=== PATIENT | female | born 1985 | race Asian ===

== ENCOUNTER → 2024-01-18 15:21 | Day surgery (SDC) | payer BC, SELFPAY ==
[2024-01-18] VITALS (43 sets, daily range): BP systolic 76–111; BP diastolic 44–79
[2024-01-18 09:23] LABS: % Basophils 0.2 % (0-2); % Immature Granulocytes 1.2 % (0-0.5); % Lymphocytes 9.4 % (20.5-51.1); % Monocytes 3.2 % (1.7-9.3); Absolute Immature Granulocytes 0.2 10^3/uL (0-0.05); Absolute Lymphocytes 1.8 10^3/uL (1.2-3.4); Absolute Monocytes 0.6 10^3/uL (0.1-0.6); Absolute Neutrophils 16.3 10^3/uL (1.4-6.5); Hematocrit 24.1 % (37.0-47.0); Hemoglobin 8.1 g/dL (12.0-16.0); Mean Corp Hgb Conc. 33.6 g/dL (33.0-37.0); Mean Corpuscular Hgb 26.9 pg (27.0-31.0); Mean Corpuscular Volume 80.1 fL (81.0-99.0); Mean Platelet Volume 12.7 fL (7.4-10.4); Nucleated Red Blood Cells % 0 %; Platelet Count 233 10^3/uL (130-400); Red Blood Cell Count 3.01 10^6/uL (4.20-5.40); Red Cell Dist. Width 14.2 % (11.5-14.5)
[2024-01-18 09:30] LABS: INR 1.12; PT 14.5 Sec (11.4-14.6)
--- NOTE | 2024-01-18 09:31 | ED.GENMED ---
History of Present Illness
General
Chief Complaint: Vaginal Bleeding
Time Seen by Provider: 01/18/24 09:04
History of Present Illness
History of Present Illness:
28-year-old A1 presenting to the emergency department for vaginal bleeding. Patient reports for the past week she has been having light vaginal bleeding, which progressed last evening with lower abdominal pain. She believes she is about 78
weeks with last patient. At the end of November. She has not yet established care for this , recently moved to the area last year. Reports history of gestational diabetes with prior , also had 2 C-sections. Denies history
of anemia or transfusions. Per medics, patient hypotensive. Patient denies any additional acute medical history. She denies any recent fever, chest pain, difficulty breathing. Notes that she is passing a lot of blood clots. She has also been
having nausea and vomiting. She reports generalized fatigue, weakness, dizziness. Denies additional acute medical complaints
Phy Exam
Physical Exam
Physical Exam:
GENERAL: Alert , in no apparent distress, pale
EYE: pupils equal and reactive
NECK: Supple, no significant adenopathy.
ENT: o/p clr, dry mucous membranes
CARDIAC: Regular rate and rhythm .
LUNGS: Clear breath sounds bilaterally, no acute respiratory distress, no wheezes/rales/rhonchi
ABDOMEN: Soft, generalized tenderness to lower abdomen, no lateralizing tenderness
NEUROLOGICAL: Alert and oriented, no focal neuro deficits
SKIN: Warm and dry, skin intact.
MUSCULOSKELETAL: No edema, well perfused.
PSYCH: Normal and appropriate interaction.
: Extraction of multiple clots on pelvic examination. No further pooling of blood from cervical os
Course
Orders/Labs/Results
Orders:
Orders
01/18/24 09:08
Type+Screen Urgent
Beta HCG Quantitative Urgent
Comment: ADD
Complete Blood Count/With Diff Urgent
Comprehensive Metabolic Panel Urgent
Prothrombin Time Urgent
01/18/24 09:12
Add On- LAB Urgent
Tests Added?: beta quant, ABORH
01/18/24 09:28
0.9% Sodium Chloride 500 ml [Nss] 500 ml IV BOLUS
Ondansetron Injectable [Zofran] 4 mg IV NOW STA
01/18/24 09:29
Urinalysis Urgent
01/18/24 10:01
Ondansetron Injectable [Zofran] 4 mg IV NOW STA
01/18/24 10:15
Morphine Sulfate 4 mg IV NOW STA
01/18/24 10:39
CBC/No Diff [Complete Blood Count/No Diff] Urgent
01/18/24 10:47
0.9% Sodium Chloride 1000 ml [Nss] 1,000 ml IV BOLUS
01/18/24 10:58
* Blood Bank Products Urgent
Blood Bank Products: *Packed RBC Leuko(PRBC's)
Quantity: 2 U
Transfuse Today: Yes
Reason: Bleeding
01/18/24 11:16
US 1st Trimester Urgent
Comment:
Reason For Exam: vaginal bleeding
Abnormal Lab Results
01/18/24 01/18/24
09:08 10:39
WBC 19.0 H 10^3/uL 18.5 H 10^3/uL
(4.8-10.8) (4.8-10.8)
RBC 3.01 L 10^6/uL 2.49 L 10^6/uL
(4.20-5.40) (4.20-5.40)
Hgb 8.1 L g/dL 6.8 L* g/dL
(12.0-16.0) (12.0-16.0)
Hct 24.1 L % 19.6 L* %
(37.0-47.0) (37.0-47.0)
MCV 80.1 L fL 78.7 L fL
(81.0-99.0) (81.0-99.0)
MCH 26.9 L pg
(27.0-31.0)
MPV 12.7 H fL 13.0 H fL
(7.4-10.4) (7.4-10.4)
Abs Immat Gran (auto) 0.2 H 10^3/uL
(0-0.05)
Absolute Neuts (auto) 16.3 H 10^3/uL
(1.4-6.5)
Immature Gran % 1.2 H %
(0-0.5)
Neutrophils % 86.0 H %
(42.2-75.2)
Lymphocytes % 9.4 L %
(20.5-51.1)
Sodium 134 L mmol/L
(135-145)
Carbon Dioxide 19 L mmol/L
(22-30)
Creatinine 0.5 L mg/dL
(0.6-1.0)
Glucose 187 H mg/dl
(70-99)
Crossmatch IS Only See Detail
01/18/24 10:39
01/18/24 09:08
Vital Signs
Initial and Last Documented VS:
Initial Vital Signs
Temp Pulse Resp BP Pulse Ox
98.2 F 89 18 76/60 100
01/18/24 09:03 01/18/24 09:03 01/18/24 09:03 01/18/24 09:03 01/18/24 09:03
Last Documented Vital Signs
Temp Pulse Resp BP Pulse Ox
98.0 F 86 31 94/46 100
01/18/24 11:46 01/18/24 11:46 01/18/24 11:46 01/18/24 11:46 01/18/24 11:46
MDM/Problems Addressed
MDM/Problems Addressed:
28-year-old A1 presenting for vaginal bleeding in , approximately 7 to 8 weeks by LMP. Vital signs on arrival significant for hypotension.
On exam, patient is pale, dry mucous membranes, hypotensive. IV access immediately obtained with IV fluids started for hemodynamic instability. Concern for volume depletion from vaginal bleeding. Differential considerations include active
incomplete miscarriage versus . Pelvic exam performed, extraction of clots with no further pooling of blood. Send ultrasound also performed, no evidence of blood in the abdomen, at this time lower suspicion for ruptured ectopic. Will
plan for laboratory analysis and ultrasound imaging. Will continue IV fluids for resuscitation, Zofran for nausea. Will continue to closely monitor
11:00 -blood pressure initially improving, however again dropping after IV fluids. Rechecked hemoglobin which was initially 8.1, now 6.8. Will consent for blood. Will consult with gynecology for potential surgical need for D&E.
11:30 -gynecology at bedside, extracted additional clots. Blood is running. Ultrasound at bedside performing imaging
11:50 -discussion with gynecology, plan for admission, possible operative management.
*Critical Care Note
Total Time (30-74mins, 75-104mins- exclusive of procedures): 60
comment:
Critical care statement: A total of 35 minutes of critical care time was provided for this patient for hemodynamic instability. This additionally includes management of unstable vital signs, evaluation of the patient at bedside, reviewing the
patient's pertinent medical records, discussion with consultants, review of old EKGs and review of pertinent medical records. This time with separate from time utilized to perform the aforementioned documented procedures
ED Attending Note
-
Portions of this chart may have been created with voice recognition software.� Occasional wrong word or��sound alike� substitutions may have occurred due to the inherent limitations of voice recognition software.
Discharge Plan
Departure
Referrals:
UNKNOWN - PT DOES,NOT KNOW [Family Provider] -
Interventions
Interventions:
*Risk Screen - Suicide Last Done: 01/18/24 09:06
*General Assessment Last Done: 01/18/24 09:05
*Neglect/Abuse Screening Last Done: 01/18/24 09:06
*ED COVID-19 Vaccine History Last Done: 01/18/24 09:10
ED-Female Genitourinary Assessment Last Done: 01/18/24 10:26
Discharge Date and Time
Print Language: ARABIC
[2024-01-18 09:37] LABS: ALT (SGPT) 22 U/L (0-35); AST (SGOT) 27 U/L (14-36); Albumin 3.8 g/dl (3.5-5.0); Alkaline Phosphatase 54 U/L (38-126); Blood Urea Nitrogen 14 mg/dl (7-17); Calcium 8.7 mg/dl (8.4-10.2); Carbon Dioxide 19 mmol/L (22-30); Chloride 104 mmol/L (98-107); Glucose 187 mg/dl (70-99); Potassium 4.6 mmol/L (3.5-5.1); Sodium 134 mmol/L (135-145); Total Bilirubin 0.3 mg/dl (0.2-1.3); Total Protein 6.5 g/dl (6.3-8.2); eGFR > 60.00
[2024-01-18] MEDS: ZOFRAN 4 MG IV ×2 (09:42→10:09)
[2024-01-18] MEDS: NSS 500 IV (09:45)
[2024-01-18] MEDS: MORPHINE SULFATE 4 MG IV (10:19)
[2024-01-18] MEDS: NSS 1000 IV (10:40)
[2024-01-18 10:49] LABS: Mean Corp Hgb Conc. 34.7 g/dL (33.0-37.0); Mean Corpuscular Hgb 27.3 pg (27.0-31.0); Mean Corpuscular Volume 78.7 fL (81.0-99.0); Platelet Count 205 10^3/uL (130-400); Red Blood Cell Count 2.49 10^6/uL (4.20-5.40); White Blood Cell Count 18.5 10^3/uL (4.8-10.8)
[2024-01-18 10:54] LABS: Hematocrit 19.6 % (37.0-47.0); Hemoglobin 6.8 g/dL (12.0-16.0)
--- NOTE | 2024-01-18 12:12 | HP.FOC2 ---
Focused History & Physical
Chief Complaint
HPI:
Chief Complaint: Heavy Vaginal Bleeding, early
HPI / Indication for Planned Procedure:
38yo with LMP 11/22/23 presents with her via EMS due to heavy vaginal bleeding that started around 2AM with intense cramping/ Patient should be 8 weeks by LMP, recently moved to the area and does not have an established physician.
States she had bleeding like a period last week, last 1 day, then resumed overnight. While in the E.R. she had hypotensive episode and a drop in her H/H was noted, thus she was ordered for 2U PRBCs and OB was consulted. At bedside an US was
performed that on my read shows no free fluid in the pelvis, no obvious adnexal masses, and thickened EMS, though no obvious G.S./IUP noted. final radiology read is pending when I saw patient
Relevant Past Medical History: Negative
Relevant Social History: Negative
Relevant Family History: Negative
Relevant Past Surgical History: Positive for (C/S x2, D&E x1)
Review of Systems
Review of Pertinent Systems: All Systems Negative Except for the Following Positives
Medication
See Medication form for detailed medications: Yes
Medication List (including Herbals & OTC):
No Meds [No Current Medications] 01/18/24
Medications Reviewed: Yes
Allergies and Reactions
Patient has Allergies: No
Noted Allergies and Reactions:
Allergy/AdvReac Type Severity Reaction Status Date / Time
No Known Allergies Allergy Verified 01/18/24 09:05
Pertinent Physical Exam
All Other Systems: Negative
Abdomen: Normal and Other (SSE: blood/clots and what appears to be placental tissue evacuated from a dilated cervix)
Diagnosis / Assessment
38yo With suspected incomplete AB, c/b hemorrhage
Plan / Procedure
1. Anemia related to acute blood loss- started blood transfusion as ordered by ER physician. 2UPRBCs ordered
2. Reviewed procedure of a D&E to evacuate any retained POC to help slow her bleeding. risks of bleeding, infection, injury to surrounding structures, need for additional unplanned procedures discussed and consent signed
3. doxycycline to be given pre-op
4. Discussed that I will likely keep her overnight in the hospital for monitoring given her significant blood loss.
Anesthesia/Sedation to be done by Anesthesia Provider: Yes
Vital Signs and Labs
-
Vital Signs and Labs:
Vital Signs
Temp Pulse Resp BP Pulse Ox
98.0 F 73 21 91/54 100
01/18/24 12:05 01/18/24 12:15 01/18/24 12:15 01/18/24 12:15 01/18/24 12:15
Lab Results
01/18/24 10:39
01/18/24 09:08
PT 14.5 Sec (11.4-14.6) 01/18/24 09:08
INR 1.12 01/18/24 09:08
Sodium 134 mmol/L (135-145) L 01/18/24 09:08
Potassium 4.6 mmol/L (3.5-5.1) 01/18/24 09:08
BUN 14 mg/dl (7-17) 01/18/24 09:08
Glucose 187 mg/dl (70-99) H 01/18/24 09:08
Calcium 8.7 mg/dl (8.4-10.2) 01/18/24 09:08
H/H: 8.1/24.1 on initial presentation
HC,375
Imaging Data
-
Pelvic US : UTERUS: The uterus is anteverted and measures 11.0 x 4.7 x 5.6 cm. An intrauterine gestational sac is not identified. The endometrium is thickened and heterogeneous measuring 2.1 cm in thickness.
RIGHT OVARY: The right ovary measures 2.5 x 2.1 x 2.2 cm. A thick-walled cystic structure in the right ovary measures 2.2 x 1.6 x 1.6 cm.
LEFT OVARY: The left ovary measures 2.2 x 1.8 x 2.0 cm.
There is no free fluid in the pelvis.
--- NOTE | 2024-01-18 13:29 | W.PN.UPDATE ---
Update Note
Progress Note Update
Reevaluated patient. She is resting comfortably. Denies nausea or pain at the moment. Has received 1U PRBCs, Pad has a small amount of blood on it, speculum exam not repeated.
Vitals: 89/55 P80 SpO2 100% R18
Nursing supervisor corduroy cutting called over an hour ago. Apparently there is another emergent OR case ongoing and there is no back up call team, so we are on O.R. hold at the moment. Patient is stable at this time. I will continue to intermittently check on her
until we can proceed with surgery
--- NOTE | 2024-01-18 15:52 | W.IMMPOSTOP ---
Surgical Immed Post Op Note
-
Primary Surgeon: Ace
Assisting Surgeon: n/a
Pre-op Diagnosis: Incomplete , Hemorrhage
Post-op Diagnosis: Same
Procedure Performed: D&E
Anesthesia Type: General
Specimen / Cultures: Products of Conception
Estimated Blood Loss: 3cc
Complications: none apparent
Operative Findings: 1. Anteverted uterus 2. 8mm suction catheter used 3. gritty feel along all four quadrants with curette 4. Blood type Rh +, no need for rhogam
[2024-01-18] MEDS: NORMOSOL-R 1000 IV (17:11)
--- NOTE | 2024-01-18 17:40 | PTCARENOTE ---
Patient arrived to unit from PACU s/p D&C. Assisted from stretcher to bed.
Patient is AAOX4, quiet and cooperative. L AC #20 infusing Normasol at 100mL/hour. Alina-Pad in place with scant sanguinous drainage.
--- NOTE | 2024-01-18 18:00 | PTCARENOTE ---
Addendum entered by Alexus Desir RN 01/18/24 18:07:
Per CORN DETASSELER Helder Cantrell via [place] [employer], patient's second unit of PRBC ended at 15:03 (time she arrived to OR from ER). Completed 1 Unit PRBC in TAR per this discussion. Vital Signs were being taken at that time by CORN DETASSELER/are in the anesthesia report.
Used Vital Signs from Anesthesia Report to complete TAR.
Original Note:
Per CORN DETASSELER Helder Cantrell via [place] [employer], patient's second unit of PRBC ended at 15:03 (time she arrived to OR from ER). Completed 1 Unit PRBC in TAR per this discussion. Vital Signs were being taken at that time by CORN DETASSELER/are in the anesthesia report.
--- NOTE | 2024-01-18 18:49 | W.PN.UPDATE ---
Update Note
Progress Note Update
Informed by nurse that patient has had persistent cough since being extubated from her surgery and now she notices wheezing. Patient was noted to have a lot of secretions at the time of extubation. O2 sat is 100% on RA. Patient has been encouraged
to use the Incentive spirometer. Will also check and CXR now.
[2024-01-18] MEDS: FEOSOL 325 MG PO (20:23)
[2024-01-18 20:37] LABS: Hematocrit 25.2 % (37.0-47.0)
[2024-01-18 20:50] LABS: Hemoglobin 8.7 g/dL (12.0-16.0)
[2024-01-18] MEDS: ROBITUSSIN 100 MG PO (22:44)
[2024-01-19] MEDS: NORMOSOL-R 1000 IV (00:33)
[2024-01-19 03:00] VITALS: BP 96/52
[2024-01-19] MEDS: VIBRAMYCIN 200 MG PO (04:47)
[2024-01-19 05:49] LABS: Hematocrit 22.5 % (37.0-47.0); Hemoglobin 7.8 g/dL (12.0-16.0); Mean Corp Hgb Conc. 34.7 g/dL (33.0-37.0); Mean Corpuscular Hgb 27.3 pg (27.0-31.0); Mean Corpuscular Volume 78.7 fL (81.0-99.0); Mean Platelet Volume 12.4 fL (7.4-10.4); Platelet Count 137 10^3/uL (130-400); Red Blood Cell Count 2.86 10^6/uL (4.20-5.40); Red Cell Dist. Width 14.8 % (11.5-14.5); White Blood Cell Count 15.8 10^3/uL (4.8-10.8)
--- NOTE | 2024-01-19 06:28 | W.PN.OBG.DWH ---
Today's Communication / Plan
-
stable for discharge home
f/u in office in 2 weeks.
Assessment/Plan
-
38yo POD#1 s/p D&E for incomplete AB c/b hemorrhage
1. Hemorrhage- s/p 2UPRCS
-resulting in anemia, Hgb okay at 7.8 this morning. mild symptoms, will not do any further transfusions
-continue oral FeSO4, rx sent to pharmacy
-bleeding significantly improved now, reviewed expectations at home and reasons to call
2. Post-op
-received single dose of PO doxycycline overnight
-d/c IVF now
-regular diet as tolerated.
-stable for dc, reviewed home care instructions
-Rx for motrin to pharmacy
Subjective Data
-
feels well, no cramping. feels a little dizzy at times when she is up but has been able to ambulate to the bathroom. +void. Minimal bleeding. Tolerating a regular diet.
Objective Data
-
Laboratory Results
01/19/24 05:32
01/18/24 09:08
Vital Signs
Temp Pulse Resp BP Pulse Ox
98.7 F 91 16 96/52 97
01/19/24 03:00 01/19/24 03:00 01/19/24 03:00 01/19/24 03:00 01/19/24 03:00
Gen: nad aaox3
CV: rrr
RESP: ctab/l
Abd: soft, nt, nd
[2024-01-19 07:35] VITALS: BP 112/71
[2024-01-19] MEDS: FEOSOL 325 MG PO (09:02)
[2024-01-19] MEDS: NORMOSOL-R IV (10:13)
[2024-01-19 11:29] VITALS: BP 92/55
--- NOTE | 2024-01-19 17:05 | CM ---
Patient seen earlier today at bedside. Patient plan is to return home with family supports. Patient lives in a 2 story home, Patient unable to identify PCP and stated that she uses the [facility] on [facility]. CM will continue to follow for
discharge planning needs.
Plan; home with no needs.
== END ==
LOC: EMR 08:56 → PACU 15:21
PROVIDERS: ATTENDING PHYSICIAN Obstetrics & Gynecology; EMERGENCY PHYSICIAN Student in an Organized Health Care Education/Training Program
DX: O03.4 Incomplete spontaneous abortion without complication (principal); O03.1 Delayed or excessive hemorrhage following incomplete spontaneous abortion; N85.4 Malposition of uterus; Z3A.08 8 weeks gestation of pregnancy
CPT/HCPCS: 59812; 88305; 36430; 71046; 76801; 76817; 80053; 84702; 85014; 85018; 85025; 85027; 85610; 86850; 86900; 86901; 86920; 96374; 96375; 99291; P9016